=== PATIENT | female | born 2000 | race African-American/Black ===

== ENCOUNTER 2020-12-27 09:54 | Emergency (ER) | payer OTHER ==
[~2020-12-27] VITALS: Ht 160 cm; Wt 81.8 kg
[2020-12-27 09:57] VITALS: BP 125/54; Ht 160 cm; Wt 81.8 kg
[2020-12-27 10:11] LABS: BILIRUBIN NEGATIVE (NEGATIVE); KETONE NEGATIVE (NEGATIVE); NITRITE NEGATIVE (NEGATIVE); UROBILINOGEN NORMAL mg/dL (< 2)
[2020-12-27 10:14] LABS: BACTERIA FEW HPF (NONE SEEN); SQUAMOUS EPITHELIAL 0-5 HPF (0-4); WHITE CELLS - URINE 0-5 HPF (0-4)
[2020-12-27] MEDS ORDERED: CEPHALEXIN500 M1 PO (10:28)
[2020-12-27] MEDS ORDERED: MACROBID100 MG PO (10:28)
== END 2020-12-27 11:15 | disposition home or self-care (01) ==
LOC: D.ER 09:54
PROVIDERS: Family Medicine
DX: Z20.2 Contact with and (suspected) exposure to infections with a predominantly sexual mode of transmission (principal); N39.0 Urinary tract infection, site not specified